=== PATIENT | female | born 1965 | race Caucasian/White ===

== ENCOUNTER 2017-07-04 10:04 | Emergency (ER) | payer SELFPAY ==
[2017-07-04] MEDS ORDERED: Dexamethasone 4 mg/ml Vial ONE (11:22)
--- NOTE | 2017-07-04 12:29 | RAD ---
PORTABLE UPRIGHT FRONTAL CHEST RADIOGRAPH: Date: 07/04/17 COMPARISON: None. HISTORY: Cough, congestion, sore throat, and sinus pain. FINDINGS: Lungs are clear. Heart and mediastinal contours unremarkable. IMPRESSION: No acute findings. POS: [facility]
== END 2017-07-04 11:40 | disposition home or self-care (01) ==
LOC: ERS 10:04
DX: J06.9 Acute upper respiratory infection, unspecified (principal); F41.9 Anxiety disorder, unspecified; Z87.891 Personal history of nicotine dependence
CPT/HCPCS: 71045; 87804; J1100

== ENCOUNTER 2017-08-14 13:16 | Emergency (ER) | payer SELFPAY ==
--- NOTE | 2017-08-14 14:49 | RAD ---
LEFT WRIST 3 VIEWS: Date: 08/14/17 HISTORY: Fall. Pain. COMPARISON: None. FINDINGS: Intercarpal and radiocarpal joint spaces are preserved. No fracture. No cortical irregularity or bryant osteal reaction. No significant soft tissue swelling. IMPRESSION: Unremarkable 3 views left wrist. POS: [facility]
--- NOTE | 2017-08-14 14:50 | RAD ---
3 VIEWS LUMBAR SPINE: Date: 08/14/17 HISTORY: Fall. Pain. COMPARISON: None. FINDINGS: Five lumbar-type vertebral bodies. There appears to be partial sacralization of L5 with pseudoarthros is of both the left and right ala with the sacrum. Lumbar spine vertebral body height is maintained. No fracture. No significant spondylolisthesis. IMPRESSION: Unremarkable 3 views lumbar spine. POS: [facility]
--- NOTE | 2017-08-14 14:51 | RAD ---
3 VIEWS CERVICAL SPINE: Date: 08/14/17 HISTORY: Fall. Pain. COMPARISON: None. FINDINGS: On the AP projection, there is appropriate alignment. There is mild degenerative change of the facets . The tip of the odontoid process is obscured on the open mouth projection. Lateral masses or C1 and C2 articulate appropriately. Predental space is normal. There is reversal of normal cervical lordosis with moderate degenerative disc disease at C5-C6, C6-C7, and C7-T1. Vertebral body height is maintai shekhar. No fracture. IMPRESSION: Degenerative changes of cervical spine with reversal of lordosis. If there is concern for fracture, c onsider CT. If there is concern for ligamentous injury, consider MRI. POS: [facility]
[2017-08-14] MEDS ORDERED: Acetaminophen 500 MG TAB ONE (15:21)
== END 2017-08-14 15:52 | disposition home or self-care (01) ==
LOC: ERS 13:16
DX: S63.502A Unspecified sprain of left wrist, initial encounter (principal); M54.5 Low back pain; M54.2 Cervicalgia; F41.9 Anxiety disorder, unspecified; W17.89XA Other fall from one level to another, initial encounter; Z87.891 Personal history of nicotine dependence
CPT/HCPCS: 72040; 72100

== ENCOUNTER 2019-03-12 11:15 | Emergency (ER) | payer SELFPAY ==
[2019-03-12] MEDS ORDERED: Acetaminophen 500 MG TAB ONE (12:58)
== END 2019-03-12 13:28 | disposition home or self-care (01) ==
LOC: ERS 11:15
DX: S61.215A Laceration without foreign body of left ring finger without damage to nail, initial encounter (principal); F41.9 Anxiety disorder, unspecified; Z87.891 Personal history of nicotine dependence; W26.0XXA Contact with knife, initial encounter
CPT/HCPCS: 12001